=== PATIENT | male | born 1955 | race Caucasian/White ===

== ENCOUNTER 2016-08-30 23:24 | Inpatient (IN) | payer BC ==
[2016-08-30] MEDS ORDERED: Sodium Chloride 0.9% 10 ML Syringe FLUSH PRN (23:52)
[2016-08-30] MEDS ORDERED: Ondansetron 4 MG/2 ML SDV IVPUSH ONE (23:52)
[2016-08-30] MEDS ORDERED: Sodium Chloride 0.9% 1,000 ML IV STA (23:52)
[2016-08-30] MEDS ORDERED: HYDROmorphone 0.5 MG/0.5 ML Syringe IVPUSH ONE (23:54)
[2016-08-30] MEDS ORDERED: Alum Hydrox/Mag Hydrox/Simeth 30 ML, Lidocaine 2% 15 ML PO ONE ×2 (23:54)
--- NOTE | 2016-08-31 00:34 | EDM.PDOC ---
ED HPI GENERAL MEDICAL PROBLEM - General Chief Complaint: Abdominal Pain Stated Complaint: STOMACH PAIN ACROSS THE TOP Time Seen by Provider: 08/30/16 23:45 Source of Information: Reports: Patient History Limitations: Reports: No Limitations - History of Present Illness INITIAL COMMENTS - FREE TEXT/NARRATIVE: The patient presents with bilateral upper abdominal pain. This started this morning. It is described as cramping. It comes and goes. He has nausea and vomiting with it. He had eaten late last night at about 11pm. He has no fever or chills. He does have some upper back pain and left upper arm pain now. He has no chest pain or shortness of breath. He has no dysuria or hematuria. He has no diarrhea. He still has his gallbladder and appendix. Onset: Gradual Duration: Hour(s): (since this morning) Location: Reports: Abdomen Quality: Reports: Other (cramping) Severity: Moderate Improves with: Reports: None Worsens with: Reports: None Bilateral Upper Abdomen Pain Score (Numeric/FACES): 6 - Related Data Allergies Allergy/AdvReac Type Severity Reaction Status Date / Time No Known Allergies Allergy Verified 08/30/16 23:33 Home Meds: Home Meds Albuterol [Proventil Neb Soln] 0.63 mg NEB DAILY PRN 08/10/14 [History] Budesonide/Formoterol [Symbicort 160-4.5 Mcg Inhaler] 2 puff INH DAILY PRN 08/10 [History] Omeprazole 40 mg PO DAILY 08/10/14 [History] Past Medical History HEENT History: Reports: Impaired Vision Other HEENT History: Wears glasses Respiratory History: Reports: Asthma Gastrointestinal History: Reports: GERD - Past Surgical History HEENT Surgical History: Reports: Naso-Sinus Surgery Other Musculoskeletal Surgeries/Procedures:: back surgery Social & Family History - Tobacco Use Smoking Status *Q: Never Smoker - Recreational Drug Use Recreational Drug Use: No ED ROS GENERAL - Review of Systems Review Of Systems: See Below Constitutional: Reports: No Symptoms HEENT: Reports: No Symptoms Respiratory: Reports: No Symptoms Cardiovascular: Reports: No Symptoms Endocrine: Reports: No Symptoms GI/Abdominal: Reports: Abdominal Pain, Nausea, Vomiting : Reports: No Symptoms Musculoskeletal: Reports: Arm Pain (Left upper), Back Pain (Upper) ED EXAM, GI/ABD - Physical Exam Exam: See Below Exam Limited By: No Limitations General Appearance: Alert, No Apparent Distress Ears: Normal External Exam Nose: Normal Inspection Head: Atraumatic, Normocephalic Neck: Normal Inspection Respiratory/Chest: No Respiratory Distress, Lungs Clear, Normal Breath Sounds Cardiovascular: Regular Rate, Rhythm, No Edema, No Murmur GI/Abdominal: Soft, No Organomegaly, No Mass, Tenderness (Moderate to the upper abdomen) Back Exam: Normal Inspection Extremities: Normal Inspection EKG INTERPRETATION EKG Date: 08/31/16 Time: 00:09 Rhythm: NSR Rate (Beats/Min): 60 [place]: Normal P-Wave: Present QRS: Normal ST-T: Normal QT: Normal Course - Vital Signs Last Recorded V/S: Last Vital Signs Temp 96.9 F 08/30/16 23:34 Pulse 72 08/30/16 23:34 Resp 17 08/30/16 23:34 BP 160/110 H 08/30/16 23:34 Pulse Ox 100 08/30/16 23:34 - Orders/Labs/Meds Orders: Active Orders 24 hr Category Date Time Status EKG Documentation Completion [RC] STAT Care 08/30/16 23:52 Active Peripheral IV Care [RC] . DIRECTED Care 08/30/16 23:53 Active Abdomen Pelvis w Cont [CT] Stat Exams 08/30/16 23:55 Taken Sodium Chloride 0.9% [Saline Flush] Med 08/30/16 23:52 Active 10 ml FLUSH ASDIRECTED PRN ED Antiemetic Medication Reflex [OM.PC] Stat Oth 08/30/16 23:53 Ordered Peripheral IV Insertion Adult [OM.PC] Stat Oth 08/30/16 23:52 Ordered Medication Orders Sodium Chloride (Saline Flush) 10 ml FLUSH ASDIRECTED PRN PRN Reason: Keep Vein Open Last Admin: 08/31/16 00:06 Dose: 10 ml Labs: Laboratory Tests 08/31/16 08/31/16 08/31/16 Range/Units 00:02 00:02 01:29 WBC 15.47 H (4.23-9.07) K/mm3 RBC 5.14 (4.63-6.08) M/mm3 Hgb 15.7 (13.7-17.5) gm/L Hct 45.4 (40.1-51.0) % MCV 88.3 (79.0-92.2) fl MCH 30.5 (25.7-32.2) pg MCHC 34.6 (32.2-35.5) g/dl RDW Std Deviation 44.0 H (35.1-43.9) fL Plt Count 276 (163-337) K/mm3 MPV 10.1 (9.4-12.3) fl Neut % (Auto) 67.6 (34.0-67.9) % Lymph % (Auto) 22.8 (21.8-53.1) % [place] % (Auto) 8.8 (5.3-12.2) % Eos % (Auto) 0.5 L (0.8-7.0) Baso % (Auto) 0.2 (0.1-1.2) % Neut # (Auto) 10.46 H (1.78-5.38) K/mm3 Lymph # (Auto) 3.53 (1.32-3.57) K/mm3 [place] # (Auto) 1.36 H (0.30-0.82) K/mm3 Eos # (Auto) 0.07 (0.04-0.54) K/mm3 Baso # (Auto) 0.03 (0.01-0.08) K/mm3 Sodium 138 (136-145) mEq/L Potassium 3.6 (3.5-5.1) mEq/L Chloride 105 (98-107) mEq/L Carbon Dioxide 23 (21-32) mEq/L Anion Gap 13.6 (5-15) BUN 15 (7-18) mg/dL Creatinine 1.3 (0.7-1.3) mg/dL Est Cr Clr Drug Dosing 63.84 mL/min Estimated GFR (MDRD) 56 (>60) mL/min BUN/Creatinine Ratio 11.5 L (14-18) Glucose 138 H (80-115) mg/dL Calcium 9.2 (8.5-10.1) mg/dL Total Bilirubin 0.6 (0.2-1.0) mg/dL AST 14 L (15-37) U/L ALT 22 (16-63) U/L Alkaline Phosphatase 121 H (46-116) U/L Troponin I < 0.017 (0.00-0.056) ng/mL Total Protein 7.8 (6.4-8.2) g/dl Albumin 3.6 (3.4-5.0) g/dl Globulin 4.2 gm/dL Albumin/Globulin Ratio 0.9 L (1-2) Lipase 107 (73-393) U/L Urine Color Yellow (Yellow) Urine Appearance Clear (Clear) Urine pH 6.0 (5.0-8.0) Ur Specific [place] 1.020 (1.005-1.030) Urine Protein Negative (Negative) Urine Glucose (UA) Negative (Negative) Urine Ketones Negative (Negative) Urine Occult Blood Negative (Negative) Urine Nitrite Negative (Negative) Urine Bilirubin Negative (Negative) Urine Urobilinogen 0.2 (0.2-1.0) Ur Leukocyte Esterase Negative (Negative) Urine RBC 0-5 (0-5) /hpf Urine WBC 0-5 (0-5) /hpf Ur Epithelial Cells 0-5 (0-5) /hpf Urine Bacteria Few (FEW) /hpf Urine Mucus Not seen (FEW) /hpf Meds: Medications Generic Name Dose Route Start Last Admin Trade Name Lynette PRN Reason Stop Dose Admin Sodium Chloride 10 ml 08/30/16 23:52 08/31/16 00:06 Saline Flush FLUSH 10 ml ASDIRECTED PRN Administration Keep Vein Open Discontinued Medications Generic Name Dose Route Start Last Admin Trade Name Lynette PRN Reason Stop Dose Admin Al Hydroxide/Mg Hydroxide 30 0 ml 08/30/16 23:54 08/31/16 00:07 ml/ Lidocaine HCl 15 ml PO 08/30/16 23:55 30 ml ONETIME ONE Administration Hydromorphone HCl 0.5 mg 08/30/16 23:54 08/31/16 00:06 Dilaudid IVPUSH 08/30/16 23:55 0.5 mg ONETIME ONE Administration Hydromorphone HCl 0.5 mg 08/31/16 01:48 08/31/16 01:54 Dilaudid IVPUSH 08/31/16 01:49 0.5 mg ONETIME ONE Administration Sodium Chloride 1,000 mls @ 1,000 mls/hr 08/30/16 23:52 08/31/16 00:03 Normal Saline IV 08/31/16 00:51 1,000 mls/hr .BOLUS STA Administration Ondansetron HCl 4 mg 08/30/16 23:52 08/31/16 00:04 Zofran IVPUSH 08/30/16 23:53 4 mg ONETIME ONE Administration - Re-Assessments/Exams Free Text/Narrative Re-Assessment/Exam: 08/31/16 00:34 I ordered an IV NS bolus of 1L, zofran 4mg IV, dilaudid, GI cocktail, labs, EKG and a CT of his abdomen and pelvis. 08/31/16 02:33 His WBC was elevated at 15.47. His troponin was negative. His CMP looks good. His lipase is negative. His UA shows no UTI. His CT shows a small bowel obstructive process developing in the right lower quadrant. He had no findings to suggest acute appendicitis. His pain was coming back after drinking the contrast. I gave him more dilaudid 0.5mg IV. He will need to be admitted. Departure - Departure Time of Disposition: 02:40 Disposition: Admitted As Inpatient 64 Condition: Good Clinical Impression: Small bowel obstruction - Discharge Information Forms: ED Department Discharge - My Orders Last 24 Hours: My Active Orders 08/30/16 23:52 EKG Documentation Completion [RC] STAT Sodium Chloride 0.9% [Saline Flush] 10 ml FLUSH ASDIRECTED PRN Peripheral IV Insertion Adult [OM.PC] Stat 08/30/16 23:53 Peripheral IV Care [RC] . DIRECTED ED Antiemetic Medication Reflex [OM.PC] Stat 08/30/16 23:55 Abdomen Pelvis w Cont [CT] Stat - Assessment/Plan Last 24 Hours: My Active Orders 08/30/16 23:52 EKG Documentation Completion [RC] STAT Sodium Chloride 0.9% [Saline Flush] 10 ml FLUSH ASDIRECTED PRN Peripheral IV Insertion Adult [OM.PC] Stat 08/30/16 23:53 Peripheral IV Care [RC] . DIRECTED ED Antiemetic Medication Reflex [OM.PC] Stat 08/30/16 23:55 Abdomen Pelvis w Cont [CT] Stat
[2016-08-31] MEDS ORDERED: HYDROmorphone 0.5 MG/0.5 ML Syringe IVPUSH ONE (01:48)
[2016-08-31] MEDS ORDERED: Ondansetron 4 MG/2 ML SDV IVPUSH PRN (03:24)
[2016-08-31] MEDS: HYDROmorphone 0.5 MG/0.5 ML Syringe IVPUSH PRN ×4 (03:57→23:15)
[2016-08-31] MEDS: Sodium Chloride 0.9% 1,000 ML IV SCH ×3 (04:00→20:13)
--- NOTE | 2016-08-31 06:10 | PCM.HP ---
H&P History of Present Illness - General Date of Service: 08/31/16 Admit Problem/Dx: Admission Diagnosis/Problem Admission Diagnosis/Problem Small bowel obstruction Source of Information: Patient, Provider, RN Notes Reviewed History Limitations: Reports: No Limitations - History of Present Illness Initial Comments - Free Text/Narative: This is a 61-year-old fairly healthy white male with past medical history of GERD and asthma who presents to the emergency department with complaint of upper abdominal pain that started yesterday morning. He describes his pain as crampy and intermittent in nature, associated with nausea and vomiting. Patient denies any systemic symptoms. He also complains of upper back and arm pain but appears to be chronic to him. Patient denies any other GI or symptoms. Patient denies any recent trauma or recent surgery. His initial workup in the emergency department shows a CBC remarkable for WBC of 15.47, eosinophils of 0.5 , neutrophils of 10.46, and monophylis of 1.36. His chemistry is remarkable for glucose of 138, AST of 14, and alkaline phosphatase of 121. His UA is negative for UTI. He is positive for C. Diff assay. Patient is being admitted for SBO and CDAD. Bilateral Upper Abdomen Pain Score (Numeric/FACES): 3 - Related Data Allergies/Adverse Reactions: Allergies Allergy/AdvReac Type Severity Reaction Status Date / Time No Known Allergies Allergy Verified 08/30/16 23:33 Home Medications: Home Meds Albuterol [Proventil Neb Soln] 0.63 mg NEB DAILY PRN 08/10/14 [History] Budesonide/Formoterol [Symbicort 160-4.5 Mcg Inhaler] 2 puff INH DAILY PRN 08/10 [History] Omeprazole 40 mg PO DAILY 08/10/14 [History] Past Medical History HEENT History: Reports: Impaired Vision Other HEENT History: Wears glasses Respiratory History: Reports: Asthma Gastrointestinal History: Reports: GERD Musculoskeletal History: Reports: Arthritis - Infectious Disease History Infectious Disease History: Reports: Chicken Pox, Measles - Past Surgical History HEENT Surgical History: Reports: Naso-Sinus Surgery GI Surgical History: Reports: None Musculoskeletal Surgical History: Reports: None Other Musculoskeletal Surgeries/Procedures:: back surgery Social & Family History - Family History Family Medical History: Noncontributory - Tobacco Use Smoking Status *Q: Former Smoker Used Tobacco, but Quit: No Second Hand Smoke Exposure: No - Caffeine Use Caffeine Use: Reports: Coffee Other Caffeine Use: 1- 2 cups per day - Recreational Drug Use Recreational Drug Use: No H&P Review of Systems - Review of Systems: Review Of Systems: See Below General: Reports: No Symptoms. Denies: Fever, Chills, Malaise, Weakness, Fatigue, Decreased Appetite Pulmonary: Denies: Shortness of Breath Cardiovascular: Denies: Chest Pain, Palpitations, Dyspnea on Exertion, Lightheadedness Gastrointestinal: Reports: Abdominal Pain, Diarrhea, Nausea, Vomiting Genitourinary: Reports: No Symptoms Musculoskeletal: Reports: Neck Pain, Arm Pain, Back Pain, Joint Pain, Muscle Pain Skin: Denies: Cyanosis, Jaundice, Rash, Erythema, Wound Psychiatric: Denies: Confusion, Depression, Anxiety, Hallucinations, Suicidal Ideation Neurological: Denies: Confusion, Difficulty Walking, Weakness, Gait Disturbance Hematologic/Lymphatic: Reports: No Symptoms Immunologic: Reports: No Symptoms Exam - Exam Exam: See Below - Vital Signs Vital Signs: Last Vital Signs Temp 36.1 C 08/30/16 23:34 Pulse 72 08/30/16 23:34 Resp 17 08/30/16 23:34 BP 145/98 H 08/31/16 04:59 Pulse Ox 100 08/30/16 23:34 Weight: 91.036 kg - Exam General: Alert, Mild Distress HEENT: Conjunctiva Clear, EACs Clear, EOMI, Hearing Intact, Mucosa Moist & [place] , Nares Patent, Normal Nasal Septum, Posterior Pharynx Clear, Pupils Equal, Pupils Reactive, TMs Clear Neck: Supple, Trachea Midline, +2 Carotid Pulse wo Bruit. No: JVD Lungs: Clear to Auscultation, Normal Respiratory Effort Cardiovascular: Regular Rate, Regular Rhythm Abdomen: Normal Bowel Sounds, Soft, Tenderness. No: Organomegaly, Peritoneal Signs, Distention, Guarding, Rigidity, Rebound (Male) Exam: Deferred Rectal (Males) Exam: Deferred Back Exam: Normal Inspection, Decreased Range of Motion Extremities: Normal Inspection, Normal Pulses Peripheral Pulses: 2+: Posterior Tibial (L), Posterior Tibial (R), Dorsalis Pedis (L), Dorsalis Pedis (R) Skin: Warm, Dry, Intact Neuro Extensive - Mental Status: Oriented x3, Normal Cognition, Memory Intact Neuro Extensive - Motor, Sensory, Reflexes: CN II-XII Intact, Normal Gait Psychiatric: Alert, Normal Affect, Normal Mood - Patient Data Result Diagrams: 08/31/16 00:02 08/31/16 00:02 EKG INTERPRETATION EKG Date: 08/31/16 Time: 12:09 Rhythm: Other (Sinus Rhythm) Rate (Beats/Min): 60 *Q Meaningful Use (ADM) - VTE *Q VTE Criteria *Q: - Stroke *Q Stroke Criteria *Q: - AMI *Q AMI Criteria *Q: Problem List Initiated/Reviewed/Updated: Yes Orders Last 24hrs: Active Orders 24 hr Category Date Time Status Admission Status [Patient Status] [ADT] Routine ADT 08/31/16 03:33 Active Activity as Tolerated [RC] , Care 08/31/16 03:23 Active NPO Now [Nothing per Oral Now Diet] [DIET] Diet 08/31/16 Breakfast Active HYDROmorphone [Dilaudid] Med 08/31/16 03:25 Active 0.5 mg IVPUSH Q1H PRN Ondansetron [Zofran] Med 08/31/16 03:24 Active 4 mg IVPUSH Q6H PRN Sodium Chloride 0.9% [Normal Saline] 1,000 ml Med 08/31/16 03:30 Active IV ASDIRECTED Code Status [Resuscitation Status] Routine Resus Stat 08/31/16 03:23 Ordered Medication Orders Hydromorphone HCl (Dilaudid) 0.5 mg IVPUSH Q1H PRN PRN Reason: Pain Last Admin: 08/31/16 03:57 Dose: 0.5 mg Sodium Chloride (Normal Saline) 1,000 mls @ 150 mls/hr IV ASDIRECTED MAURICIO Last Admin: 08/31/16 04:00 Dose: 125 mls/hr Ondansetron HCl (Zofran) 4 mg IVPUSH Q6H PRN PRN Reason: Nausea Sodium Chloride (Saline Flush) 10 ml FLUSH ASDIRECTED PRN PRN Reason: Keep Vein Open Last Admin: 08/31/16 00:06 Dose: 10 ml Assessment/Plan Comment:: Assessment/Plan: Acute: Small Bowel Obstruction- RLQ - CT scan per [facility] report - No Hx/o GI/ surgery - Supportive Care - Ambulated TID-QID C. Difficile Associated Diarrhea - No recent use of Abx - He is on PPIs - D/c PPI; start H2B bid - Flagyl 100 mg IV TID - Bismuth salicylate/Imodium PRN to reduce duration of diarrhea - Clear liquid diet Severe DDD L4-L5 and L5-S1 - Pain medications - He is being evaluated by Spin specialist in [facility], [place] Chronic: Asthma GERD DJD/OA Impaired Vision Plan: Admit to Med-Surg Routine AM Labs Resume Home Meds Contact Precaution with C. Diff PT/OT eval Clear liquid diet once he is starts passing gas SW/CM for d/c planning Code status:1
[2016-08-31] MEDS ORDERED: Albuterol 0.021% 0.63 MG/3 ML Neb Soln NEB PRN (07:42)
[2016-08-31] MEDS ORDERED: Promethazine 12.5 MG in Sodium Chloride 0.9% 50 ML IV PRN (07:43)
[2016-08-31] MEDS ORDERED: Temazepam 15 MG Cap PO PRN (07:43)
[2016-08-31] MEDS ORDERED: Acetaminophen 325 MG Tab PO PRN (07:43)
[2016-08-31] MEDS ORDERED: Albuterol/Ipratropium 3.0-0.5 MG/3 ML Neb Soln NEB PRN (07:43)
[2016-08-31] MEDS ORDERED: LORazepam 2 MG/ML MDV IV PRN (07:43)
[2016-08-31] MEDS ORDERED: Loperamide 2 MG Cap PO PRN (07:57)
[2016-08-31] MEDS ORDERED: Scopolamine 1.5 MG Transdermal Patch TOP ONE (07:59)
[2016-08-31] MEDS ORDERED: Bismuth Subsalicylate 262 MG/15 ML Susp 236 ML Bottle PO ONE (08:15)
[2016-08-31] MEDS: Formoterol/Mometasone 200-5 MCG 8.8 GM Inhaler IH SCH ×2 (09:19→20:33)
[2016-08-31] MEDS: Famotidine 20 MG/2 ML SDV IVPUSH SCH ×2 (09:30→20:25)
[2016-08-31] MEDS ORDERED: Metoprolol Tartrate 5 MG/5 ML SDV IVPUSH PRN (09:57)
[2016-08-31] MEDS ORDERED: Bismuth Subsalicylate 262 MG/15 ML Susp 236 ML Bottle PO PRN (10:02)
[2016-08-31] MEDS: metroNIDAZOLE/Normal Saline 500 MG in Premix Bag 1 BAG IV SCH ×2 (12:04→20:25)
[2016-08-31] MEDS: Acetaminophen/HYDROcodone 325-5 MG Tab PO PRN ×2 (14:34→20:24)
[2016-08-31] MEDS: hydrALAZINE 20 MG/ML SDV IVPUSH PRN (16:43)
--- NOTE | 2016-08-31 18:49 | PCM.SN ---
- Free Text/Narrative Note: Patient would like to get MRIs done on his neck, spine, and shoulder. Advised patient, I did not want him to foot the bill for testing unrelated to his admission. He will check with his insurance company to make sure they cover it and will let me know tomorrow tomorrow.
[2016-09-01] MEDS: HYDROmorphone 0.5 MG/0.5 ML Syringe IVPUSH PRN ×3 (02:37→12:23)
[2016-09-01] MEDS: Acetaminophen/HYDROcodone 325-5 MG Tab PO PRN (02:38)
[2016-09-01] MEDS: hydrALAZINE 20 MG/ML SDV IVPUSH PRN (02:48)
[2016-09-01] MEDS: metroNIDAZOLE/Normal Saline 500 MG in Premix Bag 1 BAG IV SCH ×3 (04:05→21:22)
[2016-09-01] MEDS: Sodium Chloride 0.9% 1,000 ML IV SCH (04:10)
--- NOTE | 2016-09-01 08:03 | CT ---
CT abdomen and pelvis Technique: Multiple axial sections were obtained from above the dome of the diaphragm inferiorly to the pubic symphysis. Intravenous and oral contrast has been given. Delayed images were also obtained through the abdomen and pelvis. Comparison: No previous abdominal imaging. Findings: Contrast is identified within the visualized esophagus compatible with reflux. Visualized lung bases show nothing acute. Liver shows no focal parenchymal abnormality. Small amount of fluid is identified around the liver. Spleen appears within normal limits. Adrenal gland on the right side shows a small nodule measuring about 8 mm which is likely due to incidental adrenal adenoma. Left adrenal gland is unremarkable. Pancreas appears within normal limits. Gallbladder shows no calcified gallstones. Aorta shows atherosclerotic change which continues into the iliac vessels without aneurysmal dilatation. No retroperitoneal adenopathy is seen. Bowel wall thickening and mild dilatation is seen within the distal ileum with surrounding inflammatory change as well as a small amount of ascites around this area of bowel wall thickening. There is some fluid also seen within the dependent portions of the pelvis. No colonic inflammatory change is seen. Incidental sigmoid diverticuli and descending colonic diverticuli are seen. Appendix is seen which is normal. Delayed images show contrast excretion into both ureters and bladder. Bone window settings were reviewed which show severe disc space narrowing at L4-L5 and L5-S1 with vacuum phenomena. Mild spondylolisthesis is noted at L5-S1 due to degenerative apophyseal change. Lesser degenerative change is noted throughout other portions of the spine. Impression: 1. Bowel wall thickening with mild bowel distention and surrounding inflammatory change and fluid seen within/around the distal ileum. Differential includes inflammatory bowel disease as well as ischemia and infection. 2. Fluid around the liver as well as within the dependent portions of the pelvis felt compatible with reactive fluid from the bowel process. 3. Other incidental findings as described above. Diagnostic code #5 Agree with preliminary report issued by [employer] ([facility] preliminary report dictated on 08/31/16, 3:25 AM Central Time)
[2016-09-01] MEDS: Famotidine 20 MG/2 ML SDV IVPUSH SCH ×2 (08:41→21:21)
--- NOTE | 2016-09-01 09:16 | PCM.PN ---
- General Info Date of Service: 09/01/16 Admission Dx/Problem (Free Text): Admission Diagnosis/Problem Admission Diagnosis/Problem Small bowel obstruction Subjective Update: Follow Up Functional Status: Reports: pain controlled, tolerating diet, ambulating, urinating. Denies: new symptoms - Review of Systems General: Denies: Fever, Weakness, Fatigue, Malaise, Chills HEENT: Reports: no symptoms Pulmonary: Denies: shortness of breath Gastrointestinal: Denies: Abdominal pain, Diarrhea, Nausea, Vomiting Genitourinary: Reports: no symptoms Musculoskeletal: Reports: neck pain, shoulder pain, back pain, joint pain Skin: Denies: cyanosis, jaundice, mottled, pallor Neurological: Denies: Confusion, Difficulty Walking, Weakness, Gait Disturbance Psychiatric: Denies: depression, anxiety, agitation Systems Review Comment:: No overnight or acute issues. He has no more episode of diarrhea. He has no new complaints. - Patient Data Vitals - most recent: Last Vital Signs Temp 36.8 C 09/01/16 08:26 Pulse 80 09/01/16 08:26 Resp 16 09/01/16 08:26 BP 116/73 09/01/16 08:26 Pulse Ox 96 09/01/16 08:26 Weight - most recent: 92.487 kg I&O - last 24 hours: Intake & Output 08/31/16 09/01/16 09/01/16 22:59 06:59 14:59 Intake Total 2780 2147 Output Total 900 Balance 1880 2147 Lab Results last 24 hrs: Laboratory Results - last 24 hr 08/31/16 09/01/16 09/01/16 Range/Units 08:30 05:33 05:33 WBC 11.38 H (4.23-9.07) K/mm3 RBC 4.26 L (4.63-6.08) M/mm3 Hgb 13.2 L (13.7-17.5) gm/L Hct 38.8 L (40.1-51.0) % MCV 91.1 (79.0-92.2) fl MCH 31.0 (25.7-32.2) pg MCHC 34.0 (32.2-35.5) g/dl RDW Std Deviation 45.9 H (35.1-43.9) fL Plt Count 239 (163-337) K/mm3 MPV 10.0 (9.4-12.3) fl Neut % (Auto) 46.7 (34.0-67.9) % Lymph % (Auto) 39.2 (21.8-53.1) % [place] % (Auto) 12.4 H (5.3-12.2) % Eos % (Auto) 1.1 (0.8-7.0) Baso % (Auto) 0.4 (0.1-1.2) % Neut # (Auto) 5.33 (1.78-5.38) K/mm3 Lymph # (Auto) 4.46 H (1.32-3.57) K/mm3 [place] # (Auto) 1.41 H (0.30-0.82) K/mm3 Eos # (Auto) 0.12 (0.04-0.54) K/mm3 Baso # (Auto) 0.04 (0.01-0.08) K/mm3 Sodium 138 (136-145) mEq/L Potassium 3.6 (3.5-5.1) mEq/L Chloride 106 (98-107) mEq/L Carbon Dioxide 22 (21-32) mEq/L Anion Gap 13.6 (5-15) BUN 9 (7-18) mg/dL Creatinine 1.2 (0.7-1.3) mg/dL Est Cr Clr Drug Dosing 71.21 mL/min Estimated GFR (MDRD) > 60 (>60) mL/min BUN/Creatinine Ratio 7.5 L (14-18) Glucose 98 (80-115) mg/dL Calcium 8.0 L (8.5-10.1) mg/dL Magnesium 1.8 (1.8-2.4) mg/dl C-Reactive Protein 6.7 H* (<1.0) mg/dL C.difficile [id number] Presumptive negative C. difficile Tox (PCR) Positive H Jesús Results last 24 hrs: Microbiology 08/31/16 08:30 Stool Culture - Preliminary Stool / Feces NORMAL ENTERIC JESÚS 1 DAY 08/31/16 08:30 Stool for WBCs - Final Stool / Feces NO WBC SEEN Med Orders - Current: Current Medications Acetaminophen (Tylenol) 650 mg PO Q4H PRN PRN Reason: Pain (Mild 1-3)/fever Hydrocodone Bitart/Acetaminophen ([place] 325-5 Mg) 1 tab PO Q4H PRN PRN Reason: Pain (moderate 4-6) Last Admin: 09/01/16 02:38 Dose: 1 tab Albuterol (Proventil Neb Soln) 0.63 mg NEB DAILY PRN PRN Reason: Dyspnea Albuterol/Ipratropium (Duoneb 3.0-0.5 Mg/3 Ml) 3 ml NEB Q4H PRN PRN Reason: Shortness Of Breath/wheezing Bismuth Subsalicylate (Pepto Bismol) 30 ml PO Q6H PRN PRN Reason: Diarrhea Famotidine (Pepcid) 20 mg IVPUSH BID [facility] Last Admin: 09/01/16 08:41 Dose: 20 mg Hydralazine HCl (Apresoline) 20 mg IVPUSH Q4H PRN PRN Reason: Hypertension Last Admin: 09/01/16 02:48 Dose: 20 mg Hydromorphone HCl (Dilaudid) 0.5 mg IVPUSH Q2H PRN PRN Reason: Pain (severe 7-10) Last Admin: 09/01/16 08:42 Dose: 0.5 mg Sodium Chloride (Normal Saline) 1,000 mls @ 150 mls/hr IV ASDIRECTED [facility] Last Admin: 09/01/16 04:10 Dose: 125 mls/hr Promethazine HCl 12.5 mg/ (Sodium Chloride) 50.5 mls @ 100 mls/hr IV Q6H PRN PRN Reason: Nausea/Vomiting Metronidazole 500 mg/ Premix 100 mls @ 100 mls/hr IV Q8H [facility] Last Admin: 09/01/16 04:05 Dose: 100 mls/hr Lorazepam (Ativan) 1 mg IV Q8H PRN PRN Reason: Anxiety Metoprolol Tartrate (Lopressor) 5 mg IVPUSH Q4H PRN PRN Reason: Tachycardia Miscellaneous Information (Remove Patch) 1 ea TRDERM Q72H [facility] Stop: 09/03/16 08:16 Mometasone Furoate/Formoterol Fumar (Dulera 200-5 Mcg) 2 puff IH BID [facility] Last Admin: 08/31/16 20:33 Dose: 2 puff Ondansetron HCl (Zofran) 4 mg IVPUSH Q6H PRN PRN Reason: Nausea Sodium Chloride (Saline Flush) 10 ml FLUSH ASDIRECTED PRN PRN Reason: Keep Vein Open Last Admin: 08/31/16 00:06 Dose: 10 ml Temazepam (Restoril) 15 mg PO BEDTIME PRN PRN Reason: Sleep Discontinued Medications Bismuth Subsalicylate (Pepto Bismol) 30 ml PO ONETIME ONE Stop: 08/31/16 08:16 Last Admin: 08/31/16 10:14 Dose: 30 ml Al Hydroxide/Mg Hydroxide 30 (ml/ Lidocaine HCl 15 ml) 0 ml PO ONETIME ONE Stop: 08/30/16 23:55 Last Admin: 08/31/16 00:07 Dose: 30 ml Hydromorphone HCl (Dilaudid) 0.5 mg IVPUSH ONETIME ONE Stop: 08/30/16 23:55 Last Admin: 08/31/16 00:06 Dose: 0.5 mg Hydromorphone HCl (Dilaudid) 0.5 mg IVPUSH ONETIME ONE Stop: 08/31/16 01:49 Last Admin: 08/31/16 01:54 Dose: 0.5 mg Hydromorphone HCl (Dilaudid) 0.5 mg IVPUSH Q1H PRN PRN Reason: Pain Last Admin: 08/31/16 09:29 Dose: 0.5 mg Sodium Chloride (Normal Saline) 1,000 mls @ 1,000 mls/hr IV .BOLUS STA Stop: 08/31/16 00:51 Last Admin: 08/31/16 00:03 Dose: 1,000 mls/hr Loperamide HCl (Imodium) 2 mg PO ASDIRECTED PRN PRN Reason: Diarrhea Ondansetron HCl (Zofran) 4 mg IVPUSH ONETIME ONE Stop: 08/30/16 23:53 Last Admin: 08/31/16 00:04 Dose: 4 mg Scopolamine (Transderm-Scop) 1.5 mg TOP ONETIME ONE Stop: 08/31/16 08:00 Last Admin: 08/31/16 09:30 Dose: 1.5 mg - Exam General: alert, oriented, cooperative, no acute distress HEENT: Pupils equal, Pupils reactive, EOMI, Mucous membr. moist/pink Neck: supple, trachea midline, no JVD, no thyromegaly Lungs: Clear to auscultation, Normal respiratory effort Cardiovascular: Regular Rate, Regular Rhythm Abdomen: bowel sounds present, soft, no tenderness, no distension (Male) Exam: Deferred Back Exam: Normal Inspection, Decreased Range of Motion Extremities: no edema, normal pulses, no tenderness/swelling, no clubbing, no cyanosis, no calf tenderness Peripheral Pulses: 2+: Dorsalis Pedis (L), Dorsalis Pedis (R) Skin: warm, dry, intact Neurological: no new focal deficit Psy/Mental Status: alert, normal affect, normal mood - Problem List Review Problem List Initiated/Reviewed/Updated: Yes - My Orders Last 24 Hours: My Active Orders 08/31/16 08:30 CULTURE STOOL + SHIGATOX [RM] Stat FECAL LACTOFERRIN [MREF] Stat OVA & PARASITES BY IMMUNOASSAY [MREF] Stat 08/31/16 09:00 Famotidine [Pepcid] 20 mg IVPUSH BID Mometasone/Formoterol [Dulera 200-5 MCG] 2 puff IH BID 08/31/16 09:57 Metoprolol Tartrate [Lopressor] 5 mg IVPUSH Q4H PRN hydrALAZINE [Apresoline] 20 mg IVPUSH Q4H PRN 08/31/16 10:02 Bismuth Subsalicylate [Pepto Bismol] 30 ml PO Q6H PRN 08/31/16 12:00 metroNIDAZOLE/Normal Saline [Flagyl 500 MG in NS 100 ML] 500 mg Premix Bag 1 bag IV Q8H 08/31/16 19:20 Communication Order [RC] DAILY 09/01/16 Breakfast Full Liquid Diet [DIET] 09/02/16 05:11 BASIC METABOLIC PANEL,BMP [CHEM] AM C-REACTIVE PROTEIN [CHEM] AM CBC WITH AUTO DIFF [HEME] AM MAGNESIUM [CHEM] AM 09/03/16 05:11 BASIC METABOLIC PANEL,BMP [CHEM] AM C-REACTIVE PROTEIN [CHEM] AM CBC WITH AUTO DIFF [HEME] AM MAGNESIUM [CHEM] AM 09/03/16 08:15 Remove Patch 1 ea TRDERM Q72H - Plan Plan:: Assessment/Plan: Acute: Small Bowel Obstruction- RLQ - Suspected Pseudo-SBO?, resolved after diarrhea - CT scan per V-rad report - No Hx/o GI/ surgery - Supportive Care - Ambulated TID-QID C. Difficile Associated Diarrhea - No recent use of Abx - He was on PPIs - D/c PPI; start H2B bid - Flagyl 100 mg IV TID - Bismuth salicylate/Imodium PRN to reduce duration of diarrhea Multiple DJD/OA - Severe DDD L4-L5 and L5-S1 - Pain medications - He is being evaluated by billing collections specialist in [facility], [place] - [facility] MRI w/o contrast done for left shoulder, neck, and spine: will write a rx for outpatient Chronic: Asthma GERD DJD/OA Impaired Vision Plan: He is clinically better He is ambulating down the haines Routine AM Labs Advance diet as tolerated SW/CM for d/c planning Code status:1
[2016-09-01] MEDS: Formoterol/Mometasone 200-5 MCG 8.8 GM Inhaler IH SCH ×2 (09:36→20:07)
[2016-09-02] MEDS: metroNIDAZOLE/Normal Saline 500 MG in Premix Bag 1 BAG IV SCH (03:46)
[2016-09-02] MEDS: hydrALAZINE 20 MG/ML SDV IVPUSH PRN (05:48)
[2016-09-02] MEDS: Acetaminophen/HYDROcodone 325-5 MG Tab PO PRN (05:49)
[2016-09-02] MEDS: Formoterol/Mometasone 200-5 MCG 8.8 GM Inhaler IH SCH (09:07)
[2016-09-02] MEDS: Famotidine 20 MG/2 ML SDV IVPUSH SCH (09:42)
[2016-09-02] MEDS ORDERED: Saccharomyces Boulardii (Probiotic) 250 MG Cap PO SCH (09:45)
--- NOTE | 2016-09-02 09:45 | PCM.PN ---
- General Info Date of Service: 09/02/16 Admission Dx/Problem (Free Text): Admission Diagnosis/Problem Admission Diagnosis/Problem Small bowel obstruction C-diff infection Functional Status: Reports: pain controlled, tolerating diet, ambulating, urinating. Denies: new symptoms - Review of Systems General: Reports: No Symptoms HEENT: Reports: no symptoms Pulmonary: Reports: no symptoms Cardiovascular: Reports: No Symptoms Gastrointestinal: Reports: Abdominal pain, Diarrhea. Denies: Hematochezia, Melena, Nausea, Vomiting Genitourinary: Reports: no symptoms Musculoskeletal: Reports: no symptoms Skin: Reports: no symptoms Neurological: Reports: No Symptoms Psychiatric: Reports: no symptoms - Patient Data Vitals - most recent: Last Vital Signs Temp 98.1 F 09/02/16 08:20 Pulse 76 09/02/16 08:20 Resp 18 09/02/16 08:20 BP 144/74 H 09/02/16 08:20 Pulse Ox 97 09/02/16 08:20 Weight - most recent: 203 lb 14.4 oz I&O - last 24 hours: Intake & Output 09/01/16 09/02/16 09/02/16 22:59 06:59 14:59 Intake Total 2019 1000 Balance 2019 1000 Lab Results last 24 hrs: Laboratory Results - last 24 hr 09/02/16 09/02/16 Range/Units 05:45 05:45 WBC 11.06 H (4.23-9.07) K/mm3 RBC 4.23 L (4.63-6.08) M/mm3 Hgb 13.1 L (13.7-17.5) gm/L Hct 38.2 L (40.1-51.0) % MCV 90.3 (79.0-92.2) fl MCH 31.0 (25.7-32.2) pg MCHC 34.3 (32.2-35.5) g/dl RDW Std Deviation 44.6 H (35.1-43.9) fL Plt Count 231 (163-337) K/mm3 MPV 10.2 (9.4-12.3) fl Neut % (Auto) 48.4 (34.0-67.9) % Lymph % (Auto) 35.8 (21.8-53.1) % [place] % (Auto) 13.2 H (5.3-12.2) % Eos % (Auto) 2.1 (0.8-7.0) Baso % (Auto) 0.3 (0.1-1.2) % Neut # (Auto) 5.36 (1.78-5.38) K/mm3 Lymph # (Auto) 3.96 H (1.32-3.57) K/mm3 [place] # (Auto) 1.46 H (0.30-0.82) K/mm3 Eos # (Auto) 0.23 (0.04-0.54) K/mm3 Baso # (Auto) 0.03 (0.01-0.08) K/mm3 Sodium 141 (136-145) mEq/L Potassium 3.6 (3.5-5.1) mEq/L Chloride 108 H (98-107) mEq/L Carbon Dioxide 22 (21-32) mEq/L Anion Gap 14.6 (5-15) BUN 12 (7-18) mg/dL Creatinine 1.1 (0.7-1.3) mg/dL Est Cr Clr Drug Dosing 77.68 mL/min Estimated GFR (MDRD) > 60 (>60) mL/min BUN/Creatinine Ratio 10.9 L (14-18) Glucose 96 (80-115) mg/dL Calcium 8.4 L (8.5-10.1) mg/dL Magnesium 1.8 (1.8-2.4) mg/dl C-Reactive Protein 5.5 H* (<1.0) mg/dL Jesús Results last 24 hrs: Microbiology 08/31/16 08:30 Cryptosporidium/Giardia - Final Stool / Feces 08/31/16 08:30 Stool Lactoferrin - Final Stool / Feces 08/31/16 08:30 Stool Culture - Preliminary Stool / Feces NORMAL ENTERIC JESÚS 1 DAY - Final NEGATIVE FOR SHIGA TOXIN 1 - Final NEGATIVE FOR SHIGA TOXIN 2 Med Orders - Current: Current Medications Acetaminophen (Tylenol) 650 mg PO Q4H PRN PRN Reason: Pain (Mild 1-3)/fever Hydrocodone Bitart/Acetaminophen ([place] 325-5 Mg) 1 tab PO Q4H PRN PRN Reason: Pain (moderate 4-6) Last Admin: 09/02/16 05:49 Dose: 1 tab Albuterol (Proventil Neb Soln) 0.63 mg NEB DAILY PRN PRN Reason: Dyspnea Albuterol/Ipratropium (Duoneb 3.0-0.5 Mg/3 Ml) 3 ml NEB Q4H PRN PRN Reason: Shortness Of Breath/wheezing Bismuth Subsalicylate (Pepto Bismol) 30 ml PO Q6H PRN PRN Reason: Diarrhea Famotidine (Pepcid) 20 mg IVPUSH BID [facility] Last Admin: 09/01/16 21:21 Dose: 20 mg Hydralazine HCl (Apresoline) 20 mg IVPUSH Q4H PRN PRN Reason: Hypertension Last Admin: 09/02/16 05:48 Dose: 20 mg Hydromorphone HCl (Dilaudid) 0.5 mg IVPUSH Q2H PRN PRN Reason: Pain (severe 7-10) Last Admin: 09/01/16 12:23 Dose: 0.5 mg Promethazine HCl 12.5 mg/ (Sodium Chloride) 50.5 mls @ 100 mls/hr IV Q6H PRN PRN Reason: Nausea/Vomiting Metronidazole 500 mg/ Premix 100 mls @ 100 mls/hr IV Q8H [facility] Last Admin: 09/02/16 03:46 Dose: 100 mls/hr Lorazepam (Ativan) 1 mg IV Q8H PRN PRN Reason: Anxiety Metoprolol Tartrate (Lopressor) 5 mg IVPUSH Q4H PRN PRN Reason: Tachycardia Miscellaneous Information (Remove Patch) 1 ea TRDERM Q72H [facility] Stop: 09/03/16 08:16 Mometasone Furoate/Formoterol Fumar (Dulera 200-5 Mcg) 2 puff IH BID [facility] Last Admin: 09/02/16 09:07 Dose: 2 puff Ondansetron HCl (Zofran) 4 mg IVPUSH Q6H PRN PRN Reason: Nausea Saccharomyces Boulardii (Florastor) 250 mg PO BID [facility] Sodium Chloride (Saline Flush) 10 ml FLUSH ASDIRECTED PRN PRN Reason: Keep Vein Open Last Admin: 08/31/16 00:06 Dose: 10 ml Temazepam (Restoril) 15 mg PO BEDTIME PRN PRN Reason: Sleep Discontinued Medications Bismuth Subsalicylate (Pepto Bismol) 30 ml PO ONETIME ONE Stop: 08/31/16 08:16 Last Admin: 08/31/16 10:14 Dose: 30 ml Al Hydroxide/Mg Hydroxide 30 (ml/ Lidocaine HCl 15 ml) 0 ml PO ONETIME ONE Stop: 08/30/16 23:55 Last Admin: 08/31/16 00:07 Dose: 30 ml Hydromorphone HCl (Dilaudid) 0.5 mg IVPUSH ONETIME ONE Stop: 08/30/16 23:55 Last Admin: 08/31/16 00:06 Dose: 0.5 mg Hydromorphone HCl (Dilaudid) 0.5 mg IVPUSH ONETIME ONE Stop: 08/31/16 01:49 Last Admin: 08/31/16 01:54 Dose: 0.5 mg Hydromorphone HCl (Dilaudid) 0.5 mg IVPUSH Q1H PRN PRN Reason: Pain Last Admin: 08/31/16 09:29 Dose: 0.5 mg Sodium Chloride (Normal Saline) 1,000 mls @ 1,000 mls/hr IV .BOLUS STA Stop: 08/31/16 00:51 Last Admin: 08/31/16 00:03 Dose: 1,000 mls/hr Sodium Chloride (Normal Saline) 1,000 mls @ 150 mls/hr IV ASDIRECTED [facility] Last Admin: 09/01/16 04:10 Dose: 125 mls/hr Loperamide HCl (Imodium) 2 mg PO ASDIRECTED PRN PRN Reason: Diarrhea Ondansetron HCl (Zofran) 4 mg IVPUSH ONETIME ONE Stop: 08/30/16 23:53 Last Admin: 08/31/16 00:04 Dose: 4 mg Scopolamine (Transderm-Scop) 1.5 mg TOP ONETIME ONE Stop: 08/31/16 08:00 Last Admin: 08/31/16 09:30 Dose: 1.5 mg - Exam Quality Assessment: DVT prophylaxis General: alert, oriented, cooperative, no acute distress HEENT: Pupils equal, Pupils reactive, EOMI, Mucous membr. moist/pink Neck: supple Lungs: Clear to auscultation, Normal respiratory effort Cardiovascular: Regular Rate, Regular Rhythm Abdomen: bowel sounds present, soft, no distension, tenderness (mild- generalized). No: rigidity, rebound, guarding (Male) Exam: Deferred Extremities: no edema Skin: warm, dry, intact Neurological: no new focal deficit Psy/Mental Status: alert, normal affect, normal mood - Problem List & Annotations (1) Clostridium difficile infection SNOMED Code(s): 553787554 Code(s): B96.89 - OTH BACTERIAL AGENTS THE CAUSE OF DISEASES CLASSD [id number] Status: Acute Priority: High Current Visit: Yes (2) Small bowel obstruction SNOMED Code(s): 107541970 Code(s): K56.69 - OTHER INTESTINAL OBSTRUCTION Status: Acute Priority: High Current Visit: Yes - Problem List Review Problem List Initiated/Reviewed/Updated: Yes - My Orders Last 24 Hours: My Active Orders 09/02/16 09:41 Consult to Family Manager [CONS] Routine 09/02/16 09:45 Saccharomyces Boulardii [Florastor] 250 mg PO BID - Plan Plan:: Assessment/Plan: Acute: Small Bowel Obstruction- RLQ - Suspected Pseudo-SBO?, resolved after diarrhea - CT scan per V-rad report - No Hx/o GI/ surgery - Supportive Care - Ambulated TID-QID C. Difficile Associated Diarrhea - No recent use of Abx - He was on PPIs - D/c PPI; start H2B bid - Flagyl 100 mg IV TID - Florastor BID - Dietitian consult - Bismuth salicylate/Imodium PRN to reduce duration of diarrhea Multiple DJD/OA - Severe DDD L4-L5 and L5-S1 - Pain medications - He is being evaluated by editorial specialist in [facility], [place] - Wants MRI w/o contrast done for left shoulder, neck, and spine: will write a rx for outpatient Chronic: Asthma- cont home meds GERD--recommend H2 edelmira on dc rather than PPI DJD/OA Impaired Vision Plan: He is clinically better He is ambulating down the [place]aines Routine AM Labs Advance diet as tolerated DVT/GI prophylax SW/CM for d/c planning Code status:1
[2016-09-02] MEDS ORDERED: metroNIDAZOLE 500 MG Tab PO ONE (11:32)
--- NOTE | 2016-09-02 12:19 | PCM.DCSUM1 ---
Discharge Summary - Hospital Course Free Text/Narrative:: This is a 61-year-old fairly healthy white male with past medical history of GERD and asthma who presents to the emergency department with complaint of upper abdominal pain that started yesterday morning. He describes his pain as crampy and intermittent in nature, associated with nausea and vomiting. Patient denies any systemic symptoms. He also complains of upper back and arm pain but appears to be chronic to him. Patient denies any other GI or symptoms. Patient denies any recent trauma or recent surgery. His initial workup in the emergency department shows a CBC remarkable for WBC of 15.47, eosinophils of 0.5 , neutrophils of 10.46, and monophylis of 1.36. His chemistry is remarkable for glucose of 138, AST of 14, and alkaline phosphatase of 121. His UA is negative for UTI. He is positive for C. Diff assay. Patient is being admitted for SBO and CDAD. Patient was hydrated with IVF, metronidazole IV. Labs improved. Pain resolved, diarrhea improved with stool being more formed. B/P was elevated on several occasions, requiring hydralazine which normalized pressures. I discussed elevated b/p's with patient, recommend antihypertensive medication, he declines stating elevation is related to pain. 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 Bowels were moving with diarrhea, SBO resolved spontaneously. Diet was advanced , tolerated well. He will be discharged home today with PO metronidazole x 10 days, probiotic. He will be switched from PPI to H2 edelmira on discharge due to c.diff infection. Dr. Lebron wrote rx's for outpatient MRI's of back and shoulder, patient wishes to arrange follow up on his own with Orthopedic group or someone at [facility] in [place]. - Discharge Data Discharge Date: 09/02/16 (admit date 08/31/16) Discharge Disposition: Home, Self-Care 01 Condition: Good - Discharge Diagnosis/Problem(s) (1) Clostridium difficile infection SNOMED Code(s): 852844147 ICD Code: B96.89 - OTH BACTERIAL AGENTS THE CAUSE OF DISEASES CLASSD [id number] Status: Acute Priority: High Current Visit: Yes (2) Small bowel obstruction SNOMED Code(s): 189496840 ICD Code: K56.69 - OTHER INTESTINAL OBSTRUCTION Status: Resolved Priority : High Current Visit: Yes - Patient Summary/Data Operative Procedure(s) Performed: None Complications: None Consults: Consultations 08/31/16 07:46 Consult to Case Management [CONS] Routine Consult to Puller Out [CONS] Routine 09/02/16 09:41 Consult to Deck Specialist [CONS] Routine Labs Pending at D/C: None Recommended Follow-up Testing/Procedures: Follow up with Primary Care Provider within 7 days of discharge-- recheck electrolytes and blood pressure Recommend check blood pressure once daily and record- bring record with to follow up visit for provider to review -Low sodium diet will help with lowering blood pressure -Minimal caffeine -Exercise 30 minutes 5 days per week Recommend probiotic daily for the next month after diagnosis of c.diff infection MRI's as outpatient as discussed with Dr. Lebron- Rx's written per Dr. Lebron for MRI's for chronic shoulder and back pain- follow up as directed and discussed with Dr. Lebron Planned Operative Procedure(s) after DC: None Hospital Course: As above - Patient Instructions Diet: Low Sodium Activity: As Tolerated, Cough & Deep Breathe Driving: May Drive Today Showering/Bathing: May Shower Notify Provider of: Fever, Increased Pain, Nausea and/or Vomiting - Discharge Plan Prescriptions/Med Rec: Bifidobacter. Bifidum/B.Longum [Florajen Bifidoblend] 460 mg PO DAILY #30 capsule Famotidine [Pepcid] 20 mg PO BID #60 tablet Metronidazole [IJD: metroNIDAZOLE] 500 mg PO TID #30 tab Home Medications: Home Meds Albuterol [Proventil Neb Soln] 0.63 mg NEB DAILY PRN 08/10/14 [History] Budesonide/Formoterol [Symbicort 160-4.5 MCG] 2 puff INH DAILY PRN 08/10/14 [ History] Acetaminophen [Tylenol] 650 mg PO Q4H PRN #0 tablet 09/02/16 [Rx] Bifidobacter. Bifidum/B.Longum [Florajen Bifidoblend] 460 mg PO DAILY #30 capsule 09/02/16 [Rx] Famotidine [Pepcid] 20 mg PO BID #60 tablet 09/02/16 [Rx] Metronidazole [IJD: metroNIDAZOLE] 500 mg PO TID #30 tab 09/02/16 [Rx] Patient Handouts: Small Bowel Obstruction, [id number], Clostridium Difficile FAQs - PURCELL, Clostridium Difficile Infection, [id number], Managing Your High Blood Pressure Forms: ED Department Discharge Referrals: PCP,None [Primary Care Provider] - - Discharge Summary/Plan Comment DC Time >30 min.: Yes (40 min) - General Info Date of Service: 09/02/16 Admission Dx/Problem (Free Text: Admission Diagnosis/Problem Admission Diagnosis/Problem Small bowel obstruction C-diff infection Doing better, feeling better. Denies n/v or abdominal pain, has had loose stools this am but states "soft" and with consistency. Good appetite, tolerating regular diet. No f/c/s, hematochezia/melena. Wishes to be discharged home today. Functional Status: Reports: pain controlled, tolerating diet, ambulating, urinating. Denies: new symptoms - Review of Systems General: Reports: No Symptoms HEENT: Reports: no symptoms Pulmonary: Reports: no symptoms Cardiovascular: Reports: No Symptoms Gastrointestinal: Reports: No symptoms Genitourinary: Reports: no symptoms Musculoskeletal: Reports: no symptoms Skin: Reports: no symptoms Neurological: Reports: No Symptoms Psychiatric: Reports: no symptoms - Patient Data Vitals - Most Recent: Last Vital Signs Temp 98.1 F 09/02/16 08:20 Pulse 76 09/02/16 08:20 Resp 18 09/02/16 08:20 BP 144/74 H 09/02/16 08:20 Pulse Ox 97 09/02/16 08:20 Weight - Most Recent: 203 lb 14.4 oz I&O - Last 24 hours: Intake & Output 09/01/16 09/02/16 09/02/16 22:59 06:59 14:59 Intake Total 2019 1000 480 Balance 2019 1000 480 Lab Results - Last 24 hrs: Laboratory Results - last 24 hr 09/02/16 09/02/16 Range/Units 05:45 05:45 WBC 11.06 H (4.23-9.07) K/mm3 RBC 4.23 L (4.63-6.08) M/mm3 Hgb 13.1 L (13.7-17.5) gm/L Hct 38.2 L (40.1-51.0) % MCV 90.3 (79.0-92.2) fl MCH 31.0 (25.7-32.2) pg MCHC 34.3 (32.2-35.5) g/dl RDW Std Deviation 44.6 H (35.1-43.9) fL Plt Count 231 (163-337) K/mm3 MPV 10.2 (9.4-12.3) fl Neut % (Auto) 48.4 (34.0-67.9) % Lymph % (Auto) 35.8 (21.8-53.1) % Kane % (Auto) 13.2 H (5.3-12.2) % Eos % (Auto) 2.1 (0.8-7.0) Baso % (Auto) 0.3 (0.1-1.2) % Neut # (Auto) 5.36 (1.78-5.38) K/mm3 Lymph # (Auto) 3.96 H (1.32-3.57) K/mm3 Kane # (Auto) 1.46 H (0.30-0.82) K/mm3 Eos # (Auto) 0.23 (0.04-0.54) K/mm3 Baso # (Auto) 0.03 (0.01-0.08) K/mm3 Sodium 141 (136-145) mEq/L Potassium 3.6 (3.5-5.1) mEq/L Chloride 108 H (98-107) mEq/L Carbon Dioxide 22 (21-32) mEq/L Anion Gap 14.6 (5-15) BUN 12 (7-18) mg/dL Creatinine 1.1 (0.7-1.3) mg/dL Est Cr Clr Drug Dosing 77.68 mL/min Estimated GFR (MDRD) > 60 (>60) mL/min BUN/Creatinine Ratio 10.9 L (14-18) Glucose 96 (80-115) mg/dL Calcium 8.4 L (8.5-10.1) mg/dL Magnesium 1.8 (1.8-2.4) mg/dl C-Reactive Protein 5.5 H* (<1.0) mg/dL ROEL Results - Last 24 hrs: Microbiology 08/31/16 08:30 Stool Culture - Preliminary Stool / Feces NORMAL ENTERIC JESÚS 2 DAYS - Final NEGATIVE FOR SHIGA TOXIN 1 - Final NEGATIVE FOR SHIGA TOXIN 2 08/31/16 08:30 Cryptosporidium/Giardia - Final Stool / Feces 08/31/16 08:30 Stool Lactoferrin - Final Stool / Feces Med Orders - Current: Current Medications Acetaminophen (Tylenol) 650 mg PO Q4H PRN PRN Reason: Pain (Mild 1-3)/fever Hydrocodone Bitart/Acetaminophen ([place] 325-5 Mg) 1 tab PO Q4H PRN PRN Reason: Pain (moderate 4-6) Last Admin: 09/02/16 05:49 Dose: 1 tab Albuterol (Proventil Neb Soln) 0.63 mg NEB DAILY PRN PRN Reason: Dyspnea Albuterol/Ipratropium (Duoneb 3.0-0.5 Mg/3 Ml) 3 ml NEB Q4H PRN PRN Reason: Shortness Of Breath/wheezing Bismuth Subsalicylate (Pepto Bismol) 30 ml PO Q6H PRN PRN Reason: Diarrhea Famotidine (Pepcid) 20 mg PO BID [facility] Hydralazine HCl (Apresoline) 20 mg IVPUSH Q4H PRN PRN Reason: Hypertension Last Admin: 09/02/16 05:48 Dose: 20 mg Hydromorphone HCl (Dilaudid) 0.5 mg IVPUSH Q2H PRN PRN Reason: Pain (severe 7-10) Last Admin: 09/01/16 12:23 Dose: 0.5 mg Promethazine HCl 12.5 mg/ (Sodium Chloride) 50.5 mls @ 100 mls/hr IV Q6H PRN PRN Reason: Nausea/Vomiting Lorazepam (Ativan) 1 mg IV Q8H PRN PRN Reason: Anxiety Metoprolol Tartrate (Lopressor) 5 mg IVPUSH Q4H PRN PRN Reason: Tachycardia Miscellaneous Information (Remove Patch) 1 ea TRDERM Q72H [facility] Stop: 09/03/16 08:16 Mometasone Furoate/Formoterol Fumar (Dulera 200-5 Mcg) 2 puff IH BID [facility] Last Admin: 09/02/16 09:07 Dose: 2 puff Ondansetron HCl (Zofran) 4 mg IVPUSH Q6H PRN PRN Reason: Nausea Saccharomyces Boulardii (Florastor) 250 mg PO BID [facility] Last Admin: 09/02/16 11:44 Dose: 250 mg Sodium Chloride (Saline Flush) 10 ml FLUSH ASDIRECTED PRN PRN Reason: Keep Vein Open Last Admin: 08/31/16 00:06 Dose: 10 ml Temazepam (Restoril) 15 mg PO BEDTIME PRN PRN Reason: Sleep Discontinued Medications Bismuth Subsalicylate (Pepto Bismol) 30 ml PO ONETIME ONE Stop: 08/31/16 08:16 Last Admin: 08/31/16 10:14 Dose: 30 ml Al Hydroxide/Mg Hydroxide 30 (ml/ Lidocaine HCl 15 ml) 0 ml PO ONETIME ONE Stop: 08/30/16 23:55 Last Admin: 08/31/16 00:07 Dose: 30 ml Famotidine (Pepcid) 20 mg IVPUSH BID [facility] Last Admin: 09/02/16 09:42 Dose: 20 mg Hydromorphone HCl (Dilaudid) 0.5 mg IVPUSH ONETIME ONE Stop: 08/30/16 23:55 Last Admin: 08/31/16 00:06 Dose: 0.5 mg Hydromorphone HCl (Dilaudid) 0.5 mg IVPUSH ONETIME ONE Stop: 08/31/16 01:49 Last Admin: 08/31/16 01:54 Dose: 0.5 mg Hydromorphone HCl (Dilaudid) 0.5 mg IVPUSH Q1H PRN PRN Reason: Pain Last Admin: 08/31/16 09:29 Dose: 0.5 mg Sodium Chloride (Normal Saline) 1,000 mls @ 1,000 mls/hr IV .BOLUS STA Stop: 08/31/16 00:51 Last Admin: 08/31/16 00:03 Dose: 1,000 mls/hr Sodium Chloride (Normal Saline) 1,000 mls @ 150 mls/hr IV ASDIRECTED [facility] Last Admin: 09/01/16 04:10 Dose: 125 mls/hr Metronidazole 500 mg/ Premix 100 mls @ 100 mls/hr IV Q8H [facility] Last Admin: 09/02/16 03:46 Dose: 100 mls/hr Loperamide HCl (Imodium) 2 mg PO ASDIRECTED PRN PRN Reason: Diarrhea Metronidazole (Flagyl) 500 mg PO ONETIME ONE Stop: 09/02/16 11:33 Last Admin: 09/02/16 11:44 Dose: 500 mg Ondansetron HCl (Zofran) 4 mg IVPUSH ONETIME ONE Stop: 08/30/16 23:53 Last Admin: 08/31/16 00:04 Dose: 4 mg Scopolamine (Transderm-Scop) 1.5 mg TOP ONETIME ONE Stop: 08/31/16 08:00 Last Admin: 08/31/16 09:30 Dose: 1.5 mg - Exam Quality Assessment: Reports: DVT prophylaxis General: Reports: alert, oriented, cooperative, no acute distress HEENT: Reports: Pupils equal, Pupils reactive, EOMI, Mucous membr. moist/pink Neck: Reports: supple Lungs: Reports: Clear to auscultation, Normal respiratory effort Cardiovascular: Reports: Regular Rate, Regular Rhythm Abdomen: Reports: bowel sounds present, soft, no tenderness, no distension (Male) Exam: Deferred Rectal (Males) Exam: Deferred Neurological: Reports: no new focal deficit Psy/Mental Status: Reports: alert, normal affect, normal mood *Q Meaningful Use (DIS) - VTE *Q VTE Criteria *Q: - Stroke *Q Stroke Criteria *Q: - AMI *Q AMI Criteria *Q:
[2016-09-02 12:54] VITALS: BP 146/78
[2016-09-02] MEDS ORDERED: Famotidine 20 MG Tab PO SCH (21:00)
== END 2016-09-02 13:40 | disposition home or self-care (01) | DRG 247 ==
LOC: JD.ED 23:24 → JD.MS 08-31 02:34
PROVIDERS: ADMIT Internal Medicine; ATTEND Internal Medicine
DX: K56.60 Unspecified intestinal obstruction (principal); R19.7 Diarrhea, unspecified; B96.89 Other specified bacterial agents as the cause of diseases classified elsewhere; M51.37 Other intervertebral disc degeneration, lumbosacral region; K21.9 Gastro-esophageal reflux disease without esophagitis; J45.909 Unspecified asthma, uncomplicated; Z79.899 Other long term (current) drug therapy; Z87.891 Personal history of nicotine dependence
CPT/HCPCS: 36415; 74177; 74177-26; 80048; 80053; 81001; 83630; 83690; 83735; 84484; 85025; 86140; 87046; 87328; 87329; 87427; 87493; 89055; 93005; 94640; 94664; 96361; 96374; 96375; 96376; 99222; 99232; 99239; 99284; 99285-25; A9270-GY; J0360; J1170; J2405; J7040; J7050